=== PATIENT | male | born 1945 | race Asian ===

== ENCOUNTER 2016-12-13 15:03 | Emergency (ER) | END 2016-12-13 19:07 | disposition home or self-care (01) | DX: H70.92 Unspecified mastoiditis, left ear (principal); R42 Dizziness and giddiness; I10 Essential (primary) hypertension; E11.9 Type 2 diabetes mellitus without complications; R55 Syncope and collapse; Z85.46 Personal history of malignant neoplasm of prostate; Z95.1 Presence of aortocoronary bypass graft; Z79.84 Long term (current) use of oral hypoglycemic drugs | CPT/HCPCS: 36415; 70450; 71010; 80053; 82962; 83690; 84484; 85025; 85610; 85730; 93005; 96374; 99285; J2405 ==

== ENCOUNTER 2017-04-20 00:14 | Inpatient (IN) | payer OTHER ==
[2017-04-20] VITALS (10 sets, daily range): BP systolic 118–198; BP diastolic 59–108; PULSE 66–72; RESP 18–20; Ht 162.6 cm; Wt 71.5 kg
[~2017-04-20] VITALS: Ht 162.6 cm; Wt 71.5 kg
[~2017-04-20 00:14] MED LIST: ALLO100T PO; AMLO-147 PO; AMOX1TAB10 PO; ATOR20TA38 PO; LANS30CA PO; MECL12.574 PO; METF500T4 PO; METO-407 PO; OMEG-135 PO; ONDA4TAB14 PO; QUIN40TA22 PO; [UNRECOGNIZED DRUG - CODE] PO
[2017-04-20] MEDS ORDERED: SOD CHLORIDE 0.9% 500 ML IV STA (00:35)
--- NOTE | 2017-04-20 01:19 | RADRPT ---
PROCEDURE: XR Chest. CLINICAL INDICATION: Headache. TECHNIQUE: Single frontal view of the chest. COMPARISON: 12/13/2016. FINDINGS: Cardiomegaly with atherosclerotic calcifications in the tortuous thoracic aorta. The lungs are sherron r. No signs of pleural fluid or pneumothorax are seen. The osseous structures and soft tissues are u nremarkable. IMPRESSION: No evidence for active cardiopulmonary disease. RPTAT: [facility] Physician Kendra Date Time Electronically viewed and signed by Hedy Alcantar Physician on 04/20/2017 01:18 RS/
[2017-04-20 01:30] LABS: BASOPHIL # 0.1 10^3/ul (0.0-0.1); BASOPHILS % 0.8 % (0.0-2.0); EOSINOPHILS # 0.2 10^3/ul (0.0-0.5); EOSINOPHILS % 2.9 % (0.0-7.0); HEMATOCRIT 38.1 % (42.0-52.0); HEMOGLOBIN 13.4 g/dl (14.0-18.0); LYMPHOCYTES # 2.4 10^3/ul (0.8-2.9); LYMPHOCYTES % 37.3 % (15.0-51.0); MEAN CORPUSCULAR HEMOGLOBIN 30.4 pg (29.0-33.0); MEAN CORPUSCULAR HGB CONC 35.2 g/dl (32.0-37.0); MEAN CORPUSCULAR VOLUME 86.4 fl (82.0-101.0); MEAN PLATELET VOLUME 11.9 fl (7.4-10.4); MONOCYTE # 0.5 10^3/ul (0.3-0.9); MONOCYTES % 7.2 % (0.0-11.0); NEUTROPHIL # 3.3 10^3/ul (1.6-7.5); NEUTROPHILS % 50.7 % (39.0-77.0); PLATELET COUNT 140 10^3/UL (140-415); RED BLOOD COUNT 4.41 10^6/ul (4.70-6.10); RED CELL DISTRIBUTION WIDTH 12.9 % (11.5-14.5); WHITE BLOOD COUNT 6.5 10^3/ul (4.8-10.8)
--- NOTE | 2017-04-20 01:34 | RADRPT ---
PROCEDURE: CT BRAIN WITHOUT CONTRAST CLINICAL INDICATION: 71-year-old male with headaches. TECHNIQUE: The study was performed utilizing [employer] VCT 64-slice CT scanner. Direct axial sections were obtained from the foramen magnum to the vertex without the use of intravenous contrast material. Sagittal and coronal reformations were obtained. One or more the following dose reduction techniques were utilized: automated exposure control, adjustment of the mA and/or kV according to p atient's size or use of iterative reconstruction technique. The images were viewed on a PACS worksta tion. CTD/vol = 45.0 mGy; Total Exam DLP = 810.3 mGy-cm. COMPARISON: CT brain December 13, 2016. FINDINGS: There is fsza-fu-ftomhpms degree of diffuse cortical and central atrophy with compensatory ventricul ar enlargement. There is no evidence for mass effect or midline shift. There are periventricular a reas of decreased density consistent with microangiopathic ischemic changes. There is no evidence f or acute intra or extra-axial blood. Calcifications are seen within the intracranial carotid and therese tebral arteries bilaterally. The bony calvarium is intact. The partially visualized paranasal sinuse s and right mastoid air cells are without significant abnormal soft tissue. There is sclerotic appea sushil to the left mastoid air cells with soft tissue filling the residual aerated mastoid air cells extending into the middle ear (epitympanum and mesotympanum) without interval change. This is most s uggestive of granulation tissue from prior mastoid disease. IMPRESSION: 1. There has been no marked interval change compared to the patient's prior CT scan from December 21, 2016. 2. Ciry-pg-mkokaazk diffuse atrophy. 3. Microangiopathic ischemic changes. 4. Vascular calcifications. 5. Persistent soft tissue within the left mastoid air cells and middle ear most suggestive of granu lation tissue from prior otomastoid disease. .Darian Shah MD, Date Time Electronically viewed and signed by .Darian Shah MD, MD on 04/20/2017 01:33 .Aurelio
[2017-04-20 01:45] LABS: INR 0.84; PROTIME 11.5 Sec (12.2-14.2); PT RATIO 0.9
[2017-04-20 01:46] LABS: PARTIAL THROMBOPLASTIN TIME 31.5 Sec (25.0-35.0)
[2017-04-20 01:47] LABS: ANION GAP 21 (8-16); BLOOD UREA NITROGEN 11 mg/dl (7-20); CALCIUM 9.7 mg/dl (8.4-10.2); CARBON DIOXIDE 29 mmol/L (21-31); CHLORIDE 99 mmol/L (97-110); CREATININE 0.83 mg/dl (0.61-1.24); GLUCOSE 135 mg/dl (70-220); POTASSIUM 3.3 mmol/L (3.5-5.1); SODIUM 146 mmol/L (135-144)
[2017-04-20 02:02] LABS: TROPONIN-I < 0.012 ng/ml (0.00-0.12)
[2017-04-20] MEDS ORDERED: VALS320T11 PO (02:59)
--- NOTE | 2017-04-20 04:01 | ERA ---
ER Documentation Chief Complaint Date/Time DATE: 04/20/17 TIME: 04:00 Chief Complaint weakness today HPI This is 71-year-old male complains of weakness today. Is also complains of chest pain. Denies any fevers or chills. Denies any other current issues. Chest pain is mild to moderate intensity. Noted to have elevated blood pressure at home. ROS All systems reviewed and are negative except as per history of present illness. Medications Home Meds Active Scripts Ondansetron (Ondansetron Odt) 4 Mg Tab.rapdis, 4 MG PO Q6H Y for NAUSEA AND/OR VOMITING, #10 TAB Prov:ABI MARIN MD 12/13/16 Meclizine Hcl* (Antivert*) 12.5 Mg Tab, 25 MG PO Q6H Y for DIZZINESS, #20 TAB Prov:ABI MARIN MD 12/13/16 Amoxicillin/Potassium Clav (Amox-Clav 875-125 mg Tablet) 875-125 mg Tab, 1 TAB PO BID for 10 Days, #20 TAB Prov:ABI MARIN MD 12/13/16 Reported Medications Valsartan* (Diovan*) 320 Mg Tablet, 320 MG PO DAILY, TAB 04/20/17 Vitamin E* (Vitamin E*) Unknown Strength Capsule, 1 CAP PO DAILY, CAP 12/13/16 Lansoprazole* (Lansoprazole*) 30 Mg Capsule.dr, 30 MG PO DAILY, CAP 12/13/16 Metoprolol Tartrate* (Lopressor*) 100 Mg Tablet, 100 MG PO DAILY, #30 TAB 12/13/16 Metformin* (Glucophage*) 500 Mg Tab, 500 MG PO WITH BREAKFAST, TAB 03/22/15 Quinapril Hcl (Quinapril Hcl) 40 Mg Tablet, 40 MG PO DAILY, TAB 03/22/15 Fish Oil* (Fish Oil*) 1,000 Mg Cap, 1000 MG PO BID, CAP 03/22/15 Atorvastatin Calcium* (Atorvastatin Calcium*) 20 Mg Tablet, 20 MG PO HS, TAB 03/22/15 Amlodipine Besylate* (Amlodipine Besylate*) 10 Mg Tablet, 10 MG PO DAILY, TAB 03/22/15 Allopurinol* (Allopurinol*) 100 Mg Tablet, 100 MG PO DAILY, TAB 03/22/15 Allergies Allergies: Coded Allergies: No Known Allergies (Unverified Allergy, Unknown, 7/26/17) PMhx/Soc History of Surgery: Yes (CABG,LAP AGATHA,HERNIA REPAIR) Anesthesia Reaction: No Hx Neurological Disorder: No Hx Respiratory Disorders: No Hx Psychiatric Problems: No Hx Miscellaneous Medical Probl: Yes (HTN,DM,HYPERCHOLESTEROLEMIA, PROSTATE CANCER) Hx Alcohol Use: No Hx Substance Use: No Hx Tobacco Use: No Smoking Status: Never smoker Physical Exam Vitals Vital Signs Date Time Temp Pulse Resp B/P Pulse Ox O2 Delivery O2 Flow Rate FiO2 04/20/17 03:00 68 18 148/90 97 Room Air 04/20/17 01:10 72 18 159/94 98 Room Air 04/20/17 00:18 97.3 72 20 161/85 98 Physical Exam Const: [] Head: Atraumatic Eyes: Normal Conjunctiva ENT: Normal External Ears, Nose and Mouth. Neck: Full range of motion..~ No meningismus. Resp: Clear to auscultation bilaterally Cardio: Regular rate and rhythm, no murmurs Abd: Soft, non tender, non distended. Normal bowel sounds Skin: No petechiae or rashes Back: No midline or flank tenderness Ext: No cyanosis, or edema Neur: Awake and alert Psych: Normal Mood and Affect Result Diagram: 04/20/1710404/20/17 010 Results 24 hrs Laboratory Tests Test 04/20/17 01:05 White Blood Count 6.510^3/ul Red Blood Count 4.4110^6/ul Hemoglobin 13.4g/dl Hematocrit 38.1% Mean Corpuscular Volume 86.4fl Mean Corpuscular Hemoglobin 30.4pg Mean Corpuscular Hemoglobin Concent 35.2g/dl Red Cell Distribution Width 12.9% Platelet Count 21700^3/UL Mean Platelet Volume 11.9fl Neutrophils % 50.7% Lymphocytes % 37.3% Monocytes % 7.2% Eosinophils % 2.9% Basophils % 0.8% Nucleated Red Blood Cells % 0.0/100WBC Neutrophils # 3.310^3/ul Lymphocytes # 2.410^3/ul Monocytes # 0.510^3/ul Eosinophils # 0.210^3/ul Basophils # 0.110^3/ul Nucleated Red Blood Cells # 0.010^3/ul Prothrombin Time 11.5Sec Prothrombin Time Ratio 0.9 INR International Normalized Ratio 0.84 Activated Partial Thromboplast Time 31.5Sec Sodium Level 146mmol/L Potassium Level 3.3mmol/L Chloride Level 99mmol/L Carbon Dioxide Level 29mmol/L Anion Gap 21 Blood Urea Nitrogen 11mg/dl Creatinine 0.83mg/dl Glucose Level 135mg/dl Calcium Level 9.7mg/dl Troponin I < 0.012ng/ml Current Medications Medications (Trade) Dose Ordered Sig/Jn Route PRN Reason Start Time Stop Time Status Last Admin Dose Admin Sodium Chloride (NS) 500 ml @ 500 mls/hr Q1H STAT IV 04/20/17 00:35 04/20/17 01:34 DC 04/20/17 01:08 Procedures/MDM EKG: Rate/Rhythm: Normal Sinus Rhythm QRS, ST, T-waves: No changes consistent w/ acute ischemia Impression: No evidence of ischemia or arrhythmia Chest X-ray 1V Interpreted by me: Soft Tissue: No acute abnormalities Bones: No acute abnormalities Mediastinum/Cardiac Silhouette/Lungs: No acute abnormalities Patient's symptoms are concerning for cardiac cause will require inpatient workup and continuous monitoring. Further w/u for ischemia, arrhythmia, PE or dissection will be deferred to the inpatient team. Accepting Care Team: Current data and ongoing care discussed. Time: 3 am Primary Provider: andrez Consulting: [XLORRAINEO] Outstanding Data: none Departure Diagnosis: Primary Impression: Chest pain Qualified Code: R07.9 - Chest pain, unspecified type Condition: Stable JAMES BUTTS Apr 20, 2017 04:01
[2017-04-20] MEDS ORDERED: ASPIRIN 325 MG TAB PO ONE (07:00)
[2017-04-20] MEDS ORDERED: NITROGLYCERIN 0.1 MG/HR PATCH TRANSDERM ONE (07:00)
[2017-04-20] MEDS ORDERED: NITROGLYCERIN 2% 1 GM OINT PKT TD ONE (07:18)
--- NOTE | 2017-04-20 11:12 | HP ---
Date/Time of Note Date/Time of Note DATE: 04/20/17 TIME: 10:50 Assessment/Plan VTE Prophylaxis VTE Prophylaxis Intervention: SCD's Assessment/Plan Assessment/Plan - Chest pain in patient with history of coronary artery disease, status post CABG 11 years ago. Will obtain cardiac enzymes 3 every 8 hours, twelve-lead EKG and 2D echo. Continue aspirin and nitroglycerin. Dr. León is asked to see patient in cardiology consultation. - Hypertension, continue metoprolol Diovan, quinapril and Norvasc. - Diabetes mellitus type 2 patient stated his last hemoglobin A1c was 6 , continue metformin. Will check hemoglobin A 1C. NovoLog per mild algorithm sliding scale q. before meals and at bedtime. - Hyperlipidemia, continue statin, check lipid panel. - History of prostate cancer, status post surgery. We will start Lovenox for deep venous thrombosis prophylaxis and Protonix for peptic ulcer disease prophylaxis. Further recommendations based on clinical course. Plan of care discussed with Dr. Buenrostro. HPI/ROS Admit Date/Time Admit Date/Time Hx of Present Illness The patient is very pleasant 71-year-old gentleman with past medical history positive for coronary artery disease, status post CABG 11 years ago, history of hypertension, diabetes, hyperlipidemia, history of prostate cancer, status post surgery. Patient developed chest pain last night and noted to have systolic blood pressure was above 200. Patient stated that the pain is pressure-like, moderate in intensity in the midsternum with no radiation. Patient's complains of mild headache. Patient denies any fever, chills, denies any nausea, vomiting , denies any abdominal pain. Patient stated that he is been compliant with his blood pressure medication. Patient troponin is found to be negative, twelve- lead EKG reveals sinus rhythm is normal with no ST segment elevation or depression. Patient was giving nitroglycerin aspirin and Coreg. The patient will be admitted for further evaluation and management to telemetry floor. PMH/Family/Social Past Medical History Coronary artery disease status post CABG 11 years ago, prostate, prostate cancer status post surgery, sigmoid diverticulosis per endoscopy 2 years ago. Medical History: cancer, diabetes, high cholesterol, hypertension Past Surgical History Status post CABG, status post cholecystectomy, status post surgery for prostate cancer and right inguinal hernia repair. Past Surgical Hx: cholecystectomy, coronary bypass surgery, endoscopy Family History Significant Family History: no pertinent family hx Social History Alcohol Use: occasionally Smoking Status: Never smoker Drug Use: none Exam/Review of Systems Vital Signs Vitals Vital Signs Date Time Temp Pulse Resp B/P Pulse Ox O2 Delivery O2 Flow Rate FiO2 04/20/17 09:48 84 19 122/81 99 Nasal Cannula 3.0 04/20/17 00:18 97.3 Exam Constitutional: alert Psych: no complaints Head: atraumatic, normocephalic Eyes: nl conjunctiva Neck: supple Respiratory: clear to auscultation Cardiovascular: nl pulses Gastrointestinal: non-tender, soft Musculoskeletal: nl extremities to inspection Extremities: normal pulses Neurological: nl mental status Skin: nl turgor Labs Result Diagram: 04/20/17 0105 04/20/17 0105 GLEN MCKENZIE Apr 20, 2017 11:01
[2017-04-20] MEDS ORDERED: POTASSIUM CHLORIDE 20 MEQ POWDER FOR ORAL SOLN PO ONE (11:30)
[2017-04-20] MEDS ORDERED: ONDANSETRON 4 MG INJ IV PRN (11:30)
[2017-04-20] MEDS ORDERED: morphine 2 MG INJ IV PRN (11:30)
[2017-04-20] MEDS ORDERED: AMLODIPINE 10 MG TAB PO SCH (11:30)
[2017-04-20] MEDS ORDERED: NITROGLYCERIN (SL) 0.4 MG TAB SL PRN (11:30)
[2017-04-20] MEDS ORDERED: NACL 0.9% 3 ML SYG IV SCH (11:30)
[2017-04-20] MEDS ORDERED: LANSOPRAZOLE 30 MG CAP PO SCH (11:30)
[2017-04-20] MEDS ORDERED: VALSARTAN 160 MG TAB PO SCH (12:00)
[2017-04-20] MEDS ORDERED: POTASSIUM CHLORIDE (SR) 10 MEQ TAB PO ONE (12:30)
--- NOTE | 2017-04-20 15:35 | RADRPT ---
Echocardiogram Report Patient Name: ALANNA FERNANDEZ Gender: Male Date: 1945 Study Date: 20-Apr-2017 Journalism Professor: Darin [facility] Location: [facility], [place] Ref. Physician: ROSA BECKMAN Quality: Adequate Procedures: Transthoracic echocardiogram with complete 2D, M-Mode, and doppler examination. Indications: Chest Pain. 2D/M Mode Doppler Measurement Value Normal Ranges Measurement Value Normal Ranges LVIDd 2D 4.5 3.5 - 5.6 cm AV Peak Negro 1.6 m/sec LVIDs 2D 3.2 2.1 - 4.1 cm AV Peak PG 10.0 mmHg FS 2D 30.4 % LVOT Peak Negro 1.0 m/sec LVPWd 2D 1.3 0.6 - 1.1 cm LVOT Peak PG 4.0 mmHg IVSd 2D 1.3 0.6 - 1.1 cm MV E Peak Negro 0.6 m/sec IVS/LVPW 2D 1.0 MV A Peak Negro 0.9 m/sec AoR Diam 2D 3.8 2.0 - 3.7 cm MV E/A 0.7 LA/Ao 2D 1 0 - 1 MV Decel Time 180 msec EDV 2D 93.6 cm3 MV E/A 0.7 ESV 2D 31.6 cm3 TR Peak Negro 2.5 m/sec LA Dimen 2D 3.3 2.3 - 4.0 cm TR Peak PG 26.0 mmHg RVSP 29.0 mmHg Findings Left Ventricle: Normal left ventricular systolic function. Normal left ventricular cavity size. Mild concentric left ventricular hypertrophy. Ejection fraction is visually estimated at 60 %. Abnormal Diastolic Function. Right Ventricle: Normal right ventricular size. Normal right ventricular systolic function. Left Atrium: The left atrium is normal in size. Right Atrium: The right atrium is normal in size. Mitral Valve: Mitral valve leaflets appear mildly thickened. Mild mitral annular calcification. Trace mitral regurgitation. Aortic Valve: No significant aortic stenosis or insufficiency. Aortic cusps appear mildly calcified. Tricuspid Valve: Normal appearance of the tricuspid valve. Estimated peak PA systolic pressure 29 mmHg. There is mild tricuspid regurgitation. Pulmonic Valve: Pulmonic valve not well visualized. There is trace pulmonic regurgitation. Pericardium: Normal pericardium with no significant pericardial effusion. Aorta: Ascending aorta is moderately dilated. Ascending Aorta 4.91 cm. IVC: Normal size and normal respiratory collapse consistent with normal right atrial pressure. Conclusions 1.Normal left ventricular systolic function. Normal left ventricular cavity size. Mild concentric left ventricular hypertrophy. Ejection fraction is visually estimated at 60 %. Abnormal Diastolic Function. 2.Normal right ventricular size. Normal right ventricular systolic function. 3.The left atrium is normal in size. 4.The right atrium is normal in size. 5.Estimated peak PA systolic pressure 29 mmHg. There is mild tricuspid regurgitation. 6.No significant valvular stenosis or regurgitation seen of remaining visualized valves. 7.Ascending aorta is moderately dilated. Ascending Aorta 4.91 cm. 8.Normal pericardium with no significant pericardial effusion. Electronically Signed By: Jhonatan León 20-Apr-2017 15:34:05 -0700 Patient Name: ALANNA FERNANDEZ Study Date: 20-Apr-2017 [id number]
--- NOTE | 2017-04-20 17:32 | CONS ---
Date/Time of Note Date/Time of Note DATE: 04/20/17 TIME: 17:25 Assessment/Plan Assessment/Plan Additional Assessment/Plan Hypertension urgency Chest pain and shortness of breath, resolved Coronary artery disease with history of CABG Dyslipidemia Aortic root aneurysm -Patient with difficult to control blood pressure over the past month. On review of medications, he is on Norvasc, Diovan, quinapril and Lopressor. His Norvasc has been giving him increased lower extremity edema. I would ideally not want the patient on an DEBBIE inhibitor and ARB. Would DC DEBBIE inhibitor, change Diovan to twice daily dosing, change Lopressor to Coreg. Decreased dose of Norvasc to 5 mg. I will await to see patient's response to this medication regimen. If needed, could start patient on low-dose diuretic in addition. His chest pain occurs when he is hypertensive and denies exertional chest pain or shortness of breath. Unfortunately, there is no ECG in the chart for me to review and I have ordered one. 2 sets of cardiac enzymes have remained negative and echocardiogram with preserved ejection fraction. On review of echocardiogram, aortic root is dilated. I will request a CT of the chest for more precise measurements. Continue aspirin and statin therapy. Consultation Date/Type/Reason Admit Date/Time Type of Consultation: cv Reason for Consultation Hypertension and chest pain Hx of Present Illness This is a 71-year-old male with past medical history of coronary artery disease with history of CABG approximately 11 years ago, hypertension, dyslipidemia, borderline diabetes who presents with complaints of chest pain, shortness of breath and hypertension. In discussion with the daughter, who is an excellent nurse at our facility, patient with issues with blood pressure control over the past month. Patient has been compliant with medications. Yesterday, he should with systolic blood pressure above 200. At this time, patient with chest pain or shortness of breath. Because of worsening symptoms, he came to the emergency room for evaluation and care. Once blood pressure was controlled, chest pain and shortness of breath resolved. Denies exertional chest pain or shortness of breath prior to this incident. He does walk daily approximately 30 -40 minutes with no exertional chest pain or shortness of breath, dizziness or palpitations. 12 point review of systems was performed with all pertinent positives and negatives mentioned above and all else is negative Psychological: no complaints Past Medical History Medical History: cancer, coronary artery disease, diabetes, high cholesterol, hypertension Past Surgical History Past Surgical Hx: cholecystectomy, coronary bypass surgery, endoscopy Family History Significant Family History: no pertinent family hx Social History Alcohol Use: occasionally Smoking Status: Never smoker Drug Use: none Other Social History Lives at home Exam/Review of Systems Vital Signs Vitals Vital Signs Date Time Temp Pulse Resp B/P Pulse Ox O2 Delivery O2 Flow Rate FiO2 04/20/17 16:24 66 04/20/17 15:42 98.3 20 126/59 94 04/20/17 11:32 Room Air 04/20/17 09:48 3.0 Exam No apparent distress, no dyspnea with speaking, daughter at bedside Constitutional: alert, oriented Head: normocephalic Neck: supple Respiratory: clear to auscultation, normal air movement Cardiovascular: other (S1-S2 heard), regular rate and rhythm, systolic murmur Gastrointestinal: bowel sounds, non-tender, other (No guarding), soft Extremities: edema Results Result Diagram: 04/20/17 0105 04/20/17 0105 Results 24 hrs Laboratory Tests Test 04/20/17 01:05 04/20/17 08:48 White Blood Count 6.5 # Red Blood Count 4.41 L Hemoglobin 13.4 L Hematocrit 38.1 L Mean Corpuscular Volume 86.4 Mean Corpuscular Hemoglobin 30.4 Mean Corpuscular Hemoglobin Concent 35.2 Red Cell Distribution Width 12.9 Platelet Count 140 # Mean Platelet Volume 11.9 H Neutrophils % 50.7 Lymphocytes % 37.3 Monocytes % 7.2 Eosinophils % 2.9 Basophils % 0.8 Nucleated Red Blood Cells % 0.0 Neutrophils # 3.3 Lymphocytes # 2.4 Monocytes # 0.5 Eosinophils # 0.2 Basophils # 0.1 Nucleated Red Blood Cells # 0.0 Prothrombin Time 11.5 L Prothrombin Time Ratio 0.9 INR International Normalized Ratio 0.84 Activated Partial Thromboplast Time 31.5 Sodium Level 146 H Potassium Level 3.3 L Chloride Level 99 Carbon Dioxide Level 29 Anion Gap 21 H Blood Urea Nitrogen 11 Creatinine 0.83 Glucose Level 135 Calcium Level 9.7 Troponin I < 0.012 < 0.012 Medications Medications Current Medications Allopurinol (Zyloprim) 100 mg DAILY PO ; Start 04/21/17 at 09:00 Amlodipine Besylate (Norvasc) 10 mg DAILY PO ; Start 04/20/17 at 11:30 Atorvastatin Calcium (Lipitor) 20 mg HS PO ; Start 04/20/17 at 21:00 Lansoprazole (Prevacid) 30 mg DAILY PO ; Start 04/20/17 at 11:30; Status Future Hold Metoprolol Tartrate (Lopressor) 100 mg DAILY PO ; Start 04/21/17 at 09:00 Valsartan (Diovan) 320 mg DAILY PO Last administered on 04/20/17t 12:45; Admin Dose 320 MG; Start 04/20/17 at 12:00 Benazepril HCl (Lotensin) 40 mg DAILY PO ; Start 04/21/17 at 09:00 Ondansetron HCl (Zofran Inj) 4 mg Q6H PRN IV NAUSEA AND/OR VOMITING; Start at 11:30 Aspirin (Ecotrin) 325 mg DAILY PO ; Start 04/21/17 at 09:00 Nitroglycerin (Nitroglycerin (Sl Tab) 0.4 Mg) 1 tab Q5M PRN SL CHEST PAIN; Start 04/20/17 at 11:30 Acetaminophen (Tylenol Tab) 650 mg Q6H PRN PO PAIN LEVEL 1-3 OR FEVER; Start at 11:30 Morphine Sulfate (morphine) 2 mg Q4H PRN IV PAIN LEVEL 7-10; Start 04/20/17 at 11:30 Pantoprazole (Protonix Tab) 40 mg DAILY@06 PO ; Start 04/21/17 at 06:00 Enoxaparin Sodium (Lovenox) 30 mg DAILY SC ; Start 04/21/17 at 09:00 Jhonatan León DO Apr 20, 2017 17:32
--- NOTE | 2017-04-20 18:01 | RADRPT ---
PROCEDURE: CT Chest. CLINICAL INDICATION: Chest pain TECHNIQUE: CT scan of the chest without contrast was performed on the [employer] volumetric [address] [facility] without contrast. Coronal and sagittal reformatted images were obtained from the axial source images. The CTDI vol is 7.99 mGy and the DLP is 350.76 mGy-cm. COMPARISON: None. FINDINGS: A 4 mm irregular opacity in the right apex is seen on series 4 and image number 25. A tiny 2 mm mauri cified granuloma in the left lower lobe is seen on series 4 and image 93. Mild atelectasis versus s carring in the right middle lobe is seen. No dense consolidation or pleural effusion is seen. The mediastinum and hilum are unremarkable without evidence for mass or lymphadenopathy. Fusiform aneur ysmal dilatation of the aortic root and ascending aorta is seen. The ascending aorta measures appro ximately 5.4 x 5.3 cm in size and extends into the proximal aortic arch. The remainder the aortic a rch is otherwise slightly ectatic and tortuous in course with atherosclerotic calcific plaque. Coron beba vascular calcifications are seen. The heart size is mildly enlarged and is without evidence for pericardial thickening or effusion. The axillary regions, subpectoral regions, and supraclavicular regions are all unremarkable. The gallbladder has been removed. The right renal cyst is seen measuring 1.9 cm in size. Imaging obtained through the upper abdomen reveals no acute abnormality. The osseous structures are intact. No osteolytic or osteoblastic lesion is detected. IMPRESSION: 1. Fusiform aneurysmal dilatation of the ascending aorta extending to the proximal aortic arch sarahi uring 5.4 cm in maximal diameter. 2. Mild cardiomegaly. 3. Status post cholecystectomy. 4. 4 mm irregular opacity in the right apex. Recommendations Solid nodules Nodule size: = 4 mm - low risk patients: no follow-up needed - high risk patients: follow-up at 12 months and if no change, no further imaging needed Nodule size: 4-6 mm - low risk patients: follow-up at 12 months and if no change, no further imaging needed - high risk patients: initial follow-up CT at 6-12 months and then at 18-24 months if no change Nodule size: >6-8 mm - low risk patients: initial follow-up CT at 6-12 months and then at 18-24 months if no change - high risk patients: initial follow-up CT at 3-6 months and then at 9-12 and 24 months if no change Nodule size: >8 mm - either low or high risk patients - follow-up CTs at around 3, 9, and 24 months - dynamic contrast enhanced CT, PET, and/or biopsy Note: newly detected indeterminate nodule in persons 35 years of age or older. - low risk patients: minimal or absent history of smoking and or other known risk factors - high risk patients: history of smoking or of other known risk factors (e.g. first degree relative with lung cancer, or exposure to asbestos, radon, uranium) if a nodule up to 8 mm is partly solid or is ground glass further follow up is required after 24 mon ths to exclude possible slow growing adenocarcinoma (NICOLETTE) RPTAT: HPNM Physician Otilia Date Time Electronically viewed and signed by Carlos Alberto Cee Physician on 04/20/2017 18:00 /
[2017-04-20] MEDS: ATORVASTATIN 20 MG TAB PO SCH (20:20)
[2017-04-21] VITALS (20 sets, daily range): BP systolic 140–172; BP diastolic 76–100; PULSE 61–96; RESP 16–20
[2017-04-21] MEDS: PANTOPRAZOLE (EC) 40 MG TAB PO SCH (05:43)
--- NOTE | 2017-04-21 06:34 | CONS ---
Date/Time of Note Date/Time of Note DATE: 04/21/17 TIME: 06:29 Assessment/Plan Assessment/Plan Additional Assessment/Plan 71 year old male with 5.4cm ascending aortic aneurysm. He should have this repaired since anything over 5.2 cm has increased risk of dissection or rupture especially in the face of significant htn poorly controlled. Should have coronary angiogram prior to surgery. Patient will follow up with me as outpatient. Thank you for the referral. Consultation Date/Type/Reason Admit Date/Time Date of Consultation: Apr 21, 2017 Reason for Consultation ascending aneurysm Referring Provider: Jhonatan León DO Hx of Present Illness 71 year old male s/p CABGx2 11 years ago admitted with CP and HTN. Had ct chest which shows 5.4 cm ascending aortic aneurysm. We are asked to see pt regarding repair. Constitutional: No chills, No diaphoresis, No disoriented, No febrile, No improved, No no complaints, No other, No poor po, No requiring IVF, No requiring O2 Eyes: No discharge, No no complaints, No other, No pain, No redness, No visual change ENT: No bleeding, No congestion, No discharge, No dysphagia, No no complaints, No other, No pain, No sore throat Respiratory: No cough, No no complaints, No other, No pain, No pleuritic pain, No shortness of breath, No sputum, No wheezing Cardiovascular: chest pain Gastrointestinal: No blood, No constipation, No decreased appetite, No diarrhea , No flatus, No nausea, No no complaints, No other, No pain, No passing stool, No vomiting Genitourinary: No bleeding, No discharge, No dysuria, No flank pain, No hematuria, No no complaints, No other Musculoskeletal: No back pain, No bone/joint pain, No neck pain, No no complaints, No other, No restricted range of motion, No swelling Skin: No bruising, No erythema, No laceration, No no complaints, No other, No pruritis, No rash, No skin lesions Neurologic: No confusion, No dizziness, No focal-weakness, No headache, No no complaints, No other, No seizure, No syncope Endocrine: No dry skin, No no complaints, No other, No polydypsia, No polyuria , No temp intolerance Lymphatic: No adenopathy, No lymphadema, No no complaints, No other, No tender nodes Psychological: no complaints, No anxiety, No confusion, No depression, No nl mood/affect, No other, No suicidal Immunologic: No immunodeficiency, No no complaints, No other, No pruritis, No rhinitis, No urticaria Past Medical History Medical History: cancer, coronary artery disease, diabetes, high cholesterol, hypertension Past Surgical History Past Surgical Hx: cholecystectomy, coronary bypass surgery, endoscopy Family History Significant Family History: no pertinent family hx Social History Alcohol Use: none Smoking Status: Never smoker Drug Use: none Exam/Review of Systems Vital Signs Vitals Vital Signs Date Time Temp Pulse Resp B/P Pulse Ox O2 Delivery O2 Flow Rate FiO2 04/21/17 05:44 67 159/89 04/21/17 03:47 97.8 18 98 04/20/17 11:32 Room Air 04/20/17 09:48 3.0 Intake and Output 04/20/17 04/20/17 04/21/17 15:00 23:00 07:00 Intake Total 400 ml 200 ml Balance 400 ml 200 ml Exam Constitutional: No alert, No distress, No frail, No non-verbal, No obese, No oriented, No other, No well developed Psych: No anxiety, No confusion, No depression, No nl mood/affect, No no complaints, No other, No suicidal Head: No atraumatic, No hematomas, No lacerations, No normocephalic, No other Eyes: No EOMI, No PERRL, No fundi, disc, No icteric, No nl conjunctiva, No nl lids, No nl sclera, No other ENMT: No intubated, No mucosa pink and moist, No nl external ears & nose, No nl lips & teeth, No nl nasal mucosa & septum, No other, No tympanic membranes Neck: No bruits, No jvd, No masses, No non-tender, No nuchal rigidity, No other , No supple, No thyromegaly Respiratory: No clear to auscultation, No congested cough, No crackles/rales, No diminished breath sounds, No intercostal retraction, No labored breathing, No normal air movement, No other, No respirations, No tactile fremitus, No wheezing Cardiovascular: No S3, No S4, No bruits, No diastolic murmur, No edema, No gallop, No irregular rhythm, No jugular venous distention (JVD), No murmurs/ extra sounds, No nl pulses, No other, No regular rate and rhythm, No rub, No systolic murmur Gastrointestinal: No ascites, No bowel sounds, No distended, No firm, No hepatomegaly, No mass, No nl liver, spleen, No non-tender, No other, No rebound or guarding, No soft, No splenomegaly, No surgical scars, No tender Genitourinary - Male: No CVA tenderness, No discharge, No nl penis, No nl scrotum, No other Musculoskeletal: No joint tenderness, No muscle tone, No muscle weakness, No nl extremities to inspection, No nl gait and stance, No other, No range of motion, No spine non-tender, No swelling Extremities: No calf tenderness, No clubbing, No cyanosis, No edema, No normal pulses, No other, No palpable cord, No pitting pedal edema, No tenderness Neurological: No SUPERINTENDENT LAUNDRY II-XII intact, No DTR's symmetric, No confused, No focal weakness, No lethargic, No nl mental status, No nl speech, No nl strength, No numbness, No other, No reflexes, No unresponsive Skin: No diaphoresis, No ecchymosis, No laceration, No nl turgor, No other, No puncture, No rash or lesions Lymph: No enlarged, No nl lymph nodes, No nontender, No other Results Result Diagram: 04/20/1710404/20/17104 Results 24 hrs Laboratory Tests Test 04/20/17 08:48 Troponin I < 0.012 Medications Medications Current Medications Allopurinol (Zyloprim) 100 mg DAILY PO ; Start 04/21/17 at 09:00 Atorvastatin Calcium (Lipitor) 20 mg HS PO Last administered on 04/20/17t 20:20 ; Admin Dose 20 MG; Start 04/20/17 at 21:00 Lansoprazole (Prevacid) 30 mg DAILY PO ; Start 04/20/17 at 11:30; Status Future Hold Ondansetron HCl (Zofran Inj) 4 mg Q6H PRN IV NAUSEA AND/OR VOMITING; Start at 11:30 Nitroglycerin (Nitroglycerin (Sl Tab) 0.4 Mg) 1 tab Q5M PRN SL CHEST PAIN; Start 04/20/17 at 11:30 Acetaminophen (Tylenol Tab) 650 mg Q6H PRN PO PAIN LEVEL 1-3 OR FEVER; Start at 11:30 Morphine Sulfate (morphine) 2 mg Q4H PRN IV PAIN LEVEL 7-10; Start 04/20/17 at 11:30 Pantoprazole (Protonix Tab) 40 mg DAILY@06 PO Last administered on 04/21/17 05 :43; Admin Dose 40 MG; Start 04/21/17 at 06:00 Enoxaparin Sodium (Lovenox) 30 mg DAILY SC ; Start 04/21/17 at 09:00 Amlodipine Besylate (Norvasc) 5 mg DAILY PO ; Start 04/21/17 at 09:00 Aspirin (Halfprin) 81 mg DAILY PO ; Start 04/21/17 at 09:00 Valsartan (Diovan) 160 mg BID PO ; Start 04/21/17 at 09:00 Carvedilol (Coreg) 6.25 mg BID PO Last administered on 04/20/17 19:39; Admin Dose 6.25 MG; Start 04/20/17 at 20:00 Hydralazine HCl (Apresoline) 10 mg Q4H PRN IV sbp <180; Start 04/20/17 at 19:30 MARY HALE MD Apr 21, 2017 06:34
[2017-04-21 07:59] LABS: BASOPHIL # 0.1 10^3/ul (0.0-0.1); BASOPHILS % 0.9 % (0.0-2.0); EOSINOPHILS # 0.2 10^3/ul (0.0-0.5); EOSINOPHILS % 3.4 % (0.0-7.0); HEMATOCRIT 38.5 % (42.0-52.0); HEMOGLOBIN 13.2 g/dl (14.0-18.0); LYMPHOCYTES # 2.6 10^3/ul (0.8-2.9); LYMPHOCYTES % 40.3 % (15.0-51.0); MEAN CORPUSCULAR HEMOGLOBIN 30.2 pg (29.0-33.0); MEAN CORPUSCULAR HGB CONC 34.3 g/dl (32.0-37.0); MEAN CORPUSCULAR VOLUME 88.1 fl (82.0-101.0); MEAN PLATELET VOLUME 12.3 fl (7.4-10.4); MONOCYTE # 0.5 10^3/ul (0.3-0.9); MONOCYTES % 8.2 % (0.0-11.0); NEUTROPHIL # 3.1 10^3/ul (1.6-7.5); NEUTROPHILS % 46.9 % (39.0-77.0); PLATELET COUNT 140 10^3/UL (140-415); RED BLOOD COUNT 4.37 10^6/ul (4.70-6.10); WHITE BLOOD COUNT 6.5 10^3/ul (4.8-10.8)
[2017-04-21] MEDS: ALLOPURINOL 100 MG TAB PO SCH (08:37)
[2017-04-21] MEDS: metFORMIN 500 MG TAB PO SCH (08:38)
[2017-04-21] MEDS: VALSARTAN 160 MG TAB PO SCH ×2 (08:38→20:22)
[2017-04-21] MEDS: ASPIRIN (EC) 81 MG TAB PO SCH (08:38)
[2017-04-21] MEDS: AMLODIPINE 5 MG TAB PO SCH ×2 (08:41→11:55)
[2017-04-21 08:48] LABS: CHOL/HDL RATIO 5.6 RATIO
[2017-04-21 08:51] LABS: BILIRUBIN,INDIRECT 1.7 mg/dl (0-1.1); CREATININE 0.93 mg/dl (0.61-1.24); POTASSIUM 3.7 mmol/L (3.5-5.1)
[2017-04-21 08:52] LABS: ALBUMIN 4.2 g/dl (3.3-4.9); ALBUMIN/GLOBULIN RATIO 1.27; BILIRUBIN,TOTAL 1.7 mg/dl (0.2-1.3); TOTAL PROTEIN 7.5 g/dl (6.1-8.1)
[2017-04-21] MEDS ORDERED: METOPROLOL 100 MG TAB PO SCH (09:00)
[2017-04-21] MEDS ORDERED: BENAZEPRIL 40 MG TAB PO SCH (09:00)
[2017-04-21] MEDS ORDERED: ASPIRIN (EC) 325 MG TAB PO SCH (09:00)
[2017-04-21] MEDS ORDERED: DEXTROSE 50% 50 ML SYRINGE IV PRN ×2 (10:00)
[2017-04-21] MEDS ORDERED: GLUCOSE GEL 15 GRAM TUBE PO PRN ×2 (10:00)
[2017-04-21] MEDS ORDERED: GLUCAGON 1 MG INJ IM PRN (10:00)
[2017-04-21] MEDS ORDERED: GLUCOSE GEL 15 GRAM TUBE BUCCAL PRN (10:00)
[2017-04-21] MEDS: ENOXAPARIN 30 MG/0.3 ML SYG SC SCH (11:54)
--- NOTE | 2017-04-21 12:11 | PN ---
Date/Time of Note Date/Time of Note DATE: 04/21/17 TIME: 12:10 Assessment/Plan VTE Prophylaxis VTE Prophylaxis Intervention: other Lines/Catheters [facility] Urinary Cath still in place: No Assessment/Plan Chief Complaint/Hosp Course - Chest pain in patient with history of coronary artery disease, status post CABG 11 years ago. Will obtain cardiac enzymes 3 every 8 hours, twelve-lead EKG and 2D echo. Continue aspirin and nitroglycerin. Dr. León is asked to see patient in cardiology consultation. - Hypertension, continue metoprolol Diovan, quinapril and Norvasc. - Diabetes mellitus type 2 patient stated his last hemoglobin A1c was 6 , continue metformin. Will check hemoglobin A 1C. NovoLog per mild algorithm sliding scale q. before meals and at bedtime. - Hyperlipidemia, continue statin, check lipid panel. - History of prostate cancer, status post surgery. Problems: Subjective 24 Hr Interval Summary Free Text/Dictation Patient denies any chest pain Exam/Review of Systems Vital Signs Vitals Vital Signs Date Time Temp Pulse Resp B/P Pulse Ox O2 Delivery O2 Flow Rate FiO2 04/21/17 11:41 98.2 72 16 167/91 96 04/20/17 11:32 Room Air 04/20/17 09:48 3.0 Intake and Output 04/20/17 04/20/17 04/21/17 15:00 23:00 07:00 Intake Total 400 ml 200 ml Balance 400 ml 200 ml Exam Constitutional: well developed Head: atraumatic, normocephalic Neck: supple Respiratory: clear to auscultation Cardiovascular: regular rate and rhythm Gastrointestinal: non-tender, soft Extremities: normal pulses Results Result Diagram: 04/21/17 0654 04/21/17 0654 Results 24 hrs Laboratory Tests Test 04/21/17 06:54 White Blood Count 6.5 Red Blood Count 4.37 L Hemoglobin 13.2 L Hematocrit 38.5 L Mean Corpuscular Volume 88.1 Mean Corpuscular Hemoglobin 30.2 Mean Corpuscular Hemoglobin Concent 34.3 Red Cell Distribution Width 13.0 Platelet Count 140 Mean Platelet Volume 12.3 H Neutrophils % 46.9 Lymphocytes % 40.3 Monocytes % 8.2 Eosinophils % 3.4 Basophils % 0.9 Nucleated Red Blood Cells % 0.0 Neutrophils # 3.1 Lymphocytes # 2.6 Monocytes # 0.5 Eosinophils # 0.2 Basophils # 0.1 Nucleated Red Blood Cells # 0.0 Sodium Level 146 H Potassium Level 3.7 Chloride Level 102 Carbon Dioxide Level 30 Anion Gap 18 H Blood Urea Nitrogen 12 Creatinine 0.93 Glucose Level 117 Hemoglobin A1c 5.9 Calcium Level 9.0 Magnesium Level 2.0 Total Bilirubin 1.7 H Direct Bilirubin 0.00 Indirect Bilirubin 1.7 H Aspartate Amino Transf (AST/SGOT) 28 Alanine Aminotransferase (ALT/SGPT) 41 Alkaline Phosphatase 95 Total Protein 7.5 Albumin 4.2 Globulin 3.30 H Albumin/Globulin Ratio 1.27 Triglycerides Level 380 H Cholesterol Level 153 LDL Cholesterol, Calculated 50 HDL Cholesterol 27 L Cholesterol/HDL Ratio 5.6 Thyroid Stimulating Hormone (TSH) 0.556 Medications Medications Current Medications Allopurinol (Zyloprim) 100 mg DAILY PO Last administered on 04/21/17 08:37; Admin Dose 100 MG; Start 04/21/17 at 09:00 Atorvastatin Calcium (Lipitor) 20 mg HS PO Last administered on 04/20/17 20:20 ; Admin Dose 20 MG; Start 04/20/17 at 21:00 Lansoprazole (Prevacid) 30 mg DAILY PO ; Start 04/20/17 at 11:30; Status Future Hold Ondansetron HCl (Zofran Inj) 4 mg Q6H PRN IV NAUSEA AND/OR VOMITING; Start at 11:30 Nitroglycerin (Nitroglycerin (Sl Tab) 0.4 Mg) 1 tab Q5M PRN SL CHEST PAIN; Start 04/20/17 at 11:30 Acetaminophen (Tylenol Tab) 650 mg Q6H PRN PO PAIN LEVEL 1-3 OR FEVER; Start at 11:30 Morphine Sulfate (morphine) 2 mg Q4H PRN IV PAIN LEVEL 7-10; Start 04/20/17 at 11:30 Pantoprazole (Protonix Tab) 40 mg DAILY@06 PO Last administered on 04/21/17 05 :43; Admin Dose 40 MG; Start 04/21/17 at 06:00 Enoxaparin Sodium (Lovenox) 30 mg DAILY SC Last administered on 04/21/17 11:54 ; Admin Dose 30 MG; Start 04/21/17 at 09:00 Amlodipine Besylate (Norvasc) 5 mg DAILY PO Last administered on 04/21/17 11: 55; Admin Dose 5 MG; Start 04/21/17 at 09:00 Aspirin (Halfprin) 81 mg DAILY PO Last administered on 04/21/17 08:38; Admin Dose 81 MG; Start 04/21/17 at 09:00 Valsartan (Diovan) 160 mg BID PO Last administered on 04/21/17 08:38; Admin Dose 160 MG; Start 04/21/17 at 09:00 Carvedilol (Coreg) 6.25 mg BID PO Last administered on 04/21/17 08:39; Admin Dose 6.25 MG; Start 04/20/17 at 20:00 Hydralazine HCl (Apresoline) 10 mg Q4H PRN IV sbp <180; Start 04/20/17 at 19:30 Miscellaneous Information 1 ea NOTE XX ; Start 04/21/17 at 10:00 Glucose (Glutose) 15 gm Q15M PRN PO DECREASED GLUCOSE; Start 04/21/17 at 10:00 Glucose (Glutose) 22.5 gm Q15M PRN PO DECREASED GLUCOSE; Start 04/21/17 at 10: 00 Dextrose (D50w Syringe) 25 ml Q15M PRN IV DECREASED GLUCOSE; Start 04/21/17 at 10:00 Dextrose (D50w Syringe) 50 ml Q15M PRN IV DECREASED GLUCOSE; Start 04/21/17 at 10:00 Glucagon (Glucagen) 1 mg Q15M PRN IM DECREASED GLUCOSE; Start 04/21/17 at 10:00 Glucose (Glutose) 15 gm Q15M PRN BUCCAL DECREASED GLUCOSE; Start 04/21/17 at 10 :00 RHYS KOLB Apr 21, 2017 12:11
--- NOTE | 2017-04-21 16:02 | CONS ---
Date/Time of Note Date/Time of Note DATE: 04/21/17 TIME: 16:00 Assessment/Plan Assessment/Plan Additional Assessment/Plan Hypertension urgency Chest pain and shortness of breath, resolved Coronary artery disease with history of CABG Dyslipidemia Aortic root aneurysm -Blood pressure trend improving but still elevated. Given evidence of ascending aortic aneurysm of 5.4 cm, important to be aggressive with blood pressure control with goal of less than 140. Would increase dose of Coreg. If still not well controlled, would consider increasing Norvasc. Extensive discussion had with patient and family at bedside regarding aneurysm and the need for surgery in the near future. Consultation Date/Type/Reason Admit Date/Time Apr 20, 2017 at 02:56 Initial Consult Date 04/21/17 Type of Consultation: cv Referring Provider: Jhonatan León DO 24 HR Interval Summary Free Text/Dictation Denies shortness of breath, chest pain or palpitations. Feeling well. Was seen by CT surgery today. Exam/Review of Systems Vital Signs Vitals Vital Signs Date Time Temp Pulse Resp B/P Pulse Ox O2 Delivery O2 Flow Rate FiO2 04/21/17 15:38 98.3 77 16 158/91 95 04/20/17 11:32 Room Air 04/20/17 09:48 3.0 Intake and Output 04/20/17 04/20/17 04/21/17 15:00 23:00 07:00 Intake Total 400 ml 200 ml Balance 400 ml 200 ml Exam No apparent distress Constitutional: alert, oriented Head: normocephalic Neck: supple Respiratory: clear to auscultation, normal air movement Cardiovascular: other (S1-S2 heard), regular rate and rhythm Gastrointestinal: bowel sounds, non-tender, other (No guarding), soft Extremities: other (No edema or cyanosis) Results Result Diagram: 04/21/17 0654 04/21/17 0654 Results 24 hrs Laboratory Tests Test 04/21/17 06:54 White Blood Count 6.5 Red Blood Count 4.37 L Hemoglobin 13.2 L Hematocrit 38.5 L Mean Corpuscular Volume 88.1 Mean Corpuscular Hemoglobin 30.2 Mean Corpuscular Hemoglobin Concent 34.3 Red Cell Distribution Width 13.0 Platelet Count 140 Mean Platelet Volume 12.3 H Neutrophils % 46.9 Lymphocytes % 40.3 Monocytes % 8.2 Eosinophils % 3.4 Basophils % 0.9 Nucleated Red Blood Cells % 0.0 Neutrophils # 3.1 Lymphocytes # 2.6 Monocytes # 0.5 Eosinophils # 0.2 Basophils # 0.1 Nucleated Red Blood Cells # 0.0 Sodium Level 146 H Potassium Level 3.7 Chloride Level 102 Carbon Dioxide Level 30 Anion Gap 18 H Blood Urea Nitrogen 12 Creatinine 0.93 Glucose Level 117 Hemoglobin A1c 5.9 Calcium Level 9.0 Magnesium Level 2.0 Total Bilirubin 1.7 H Direct Bilirubin 0.00 Indirect Bilirubin 1.7 H Aspartate Amino Transf (AST/SGOT) 28 Alanine Aminotransferase (ALT/SGPT) 41 Alkaline Phosphatase 95 Total Protein 7.5 Albumin 4.2 Globulin 3.30 H Albumin/Globulin Ratio 1.27 Triglycerides Level 380 H Cholesterol Level 153 LDL Cholesterol, Calculated 50 HDL Cholesterol 27 L Cholesterol/HDL Ratio 5.6 Thyroid Stimulating Hormone (TSH) 0.556 Medications Medications Current Medications Allopurinol (Zyloprim) 100 mg DAILY PO Last administered on 04/21/17 08:37; Admin Dose 100 MG; Start 04/21/17 at 09:00 Atorvastatin Calcium (Lipitor) 20 mg HS PO Last administered on 04/20/17 20:20 ; Admin Dose 20 MG; Start 04/20/17 at 21:00 Lansoprazole (Prevacid) 30 mg DAILY PO ; Start 04/20/17 at 11:30; Status Future Hold Ondansetron HCl (Zofran Inj) 4 mg Q6H PRN IV NAUSEA AND/OR VOMITING; Start at 11:30 Nitroglycerin (Nitroglycerin (Sl Tab) 0.4 Mg) 1 tab Q5M PRN SL CHEST PAIN; Start 04/20/17 at 11:30 Acetaminophen (Tylenol Tab) 650 mg Q6H PRN PO PAIN LEVEL 1-3 OR FEVER; Start at 11:30 Morphine Sulfate (morphine) 2 mg Q4H PRN IV PAIN LEVEL 7-10; Start 04/20/17 at 11:30 Pantoprazole (Protonix Tab) 40 mg DAILY@06 PO Last administered on 04/21/17 05 :43; Admin Dose 40 MG; Start 04/21/17 at 06:00 Enoxaparin Sodium (Lovenox) 30 mg DAILY SC Last administered on 04/21/17 11:54 ; Admin Dose 30 MG; Start 04/21/17 at 09:00 Amlodipine Besylate (Norvasc) 5 mg DAILY PO Last administered on 04/21/17 11: 55; Admin Dose 5 MG; Start 04/21/17 at 09:00 Aspirin (Halfprin) 81 mg DAILY PO Last administered on 04/21/17 08:38; Admin Dose 81 MG; Start 04/21/17 at 09:00 Valsartan (Diovan) 160 mg BID PO Last administered on 04/21/17 08:38; Admin Dose 160 MG; Start 04/21/17 at 09:00 Carvedilol (Coreg) 6.25 mg BID PO Last administered on 04/21/17 08:39; Admin Dose 6.25 MG; Start 04/20/17 at 20:00 Hydralazine HCl (Apresoline) 10 mg Q4H PRN IV sbp <180; Start 04/20/17 at 19:30 Miscellaneous Information 1 ea NOTE XX ; Start 04/21/17 at 10:00 Glucose (Glutose) 15 gm Q15M PRN PO DECREASED GLUCOSE; Start 04/21/17 at 10:00 Glucose (Glutose) 22.5 gm Q15M PRN PO DECREASED GLUCOSE; Start 04/21/17 at 10: 00 Dextrose (D50w Syringe) 25 ml Q15M PRN IV DECREASED GLUCOSE; Start 04/21/17 at 10:00 Dextrose (D50w Syringe) 50 ml Q15M PRN IV DECREASED GLUCOSE; Start 04/21/17 at 10:00 Glucagon (Glucagen) 1 mg Q15M PRN IM DECREASED GLUCOSE; Start 04/21/17 at 10:00 Glucose (Glutose) 15 gm Q15M PRN BUCCAL DECREASED GLUCOSE; Start 04/21/17 at 10 :00 Jhonatan León DO Apr 21, 2017 16:02
[2017-04-21] MEDS: hydrALAzine 20 MG INJ IV PRN (18:35)
[2017-04-21] MEDS: ATORVASTATIN 20 MG TAB PO SCH (20:22)
[2017-04-22] VITALS (16 sets, daily range): BP systolic 128–185; BP diastolic 75–105; PULSE 67–82; RESP 16–21
[2017-04-22] MEDS: PANTOPRAZOLE (EC) 40 MG TAB PO SCH (05:48)
--- NOTE | 2017-04-22 07:27 | PN ---
Date/Time of Note Date/Time of Note DATE: 04/22/17 TIME: 07:26 Assessment/Plan VTE Prophylaxis VTE Prophylaxis Intervention: other Lines/Catheters [facility] Urinary Cath still in place: No Assessment/Plan Chief Complaint/Hosp Course - Chest pain in patient with history of coronary artery disease, status post CABG 11 years ago. Will obtain cardiac enzymes 3 every 8 hours, twelve-lead EKG and 2D echo. Continue aspirin and nitroglycerin. Dr. León is asked to see patient in cardiology consultation. - Hypertension, continue metoprolol Diovan, quinapril and Norvasc. - Diabetes mellitus type 2 patient stated his last hemoglobin A1c was 6 , continue metformin. Will check hemoglobin A 1C. NovoLog per mild algorithm sliding scale q. before meals and at bedtime. - Hyperlipidemia, continue statin, check lipid panel. - History of prostate cancer, status post surgery. Problems: Subjective 24 Hr Interval Summary Free Text/Dictation Patient denies any chest pain. Workup ongoing Exam/Review of Systems Vital Signs Vitals Vital Signs Date Time Temp Pulse Resp B/P Pulse Ox O2 Delivery O2 Flow Rate FiO2 04/22/17 05:47 79 141/89 04/22/17 04:01 97.7 19 97 04/20/17 11:32 Room Air 04/20/17 09:48 3.0 Intake and Output 04/21/17 04/21/17 04/22/17 15:00 23:00 07:00 Intake Total 1000 ml 120 ml Balance 1000 ml 120 ml Exam Constitutional: well developed Head: atraumatic, normocephalic Neck: supple Respiratory: clear to auscultation Cardiovascular: regular rate and rhythm Gastrointestinal: non-tender, soft Extremities: normal pulses Results Result Diagram: 04/21/17 0654 04/21/17 0654 Medications Medications Current Medications Allopurinol (Zyloprim) 100 mg DAILY PO Last administered on 04/21/17 08:37; Admin Dose 100 MG; Start 04/21/17 at 09:00 Atorvastatin Calcium (Lipitor) 20 mg HS PO Last administered on 04/21/17 20:22 ; Admin Dose 20 MG; Start 04/20/17 at 21:00 Lansoprazole (Prevacid) 30 mg DAILY PO ; Start 04/20/17 at 11:30; Status Future Hold Ondansetron HCl (Zofran Inj) 4 mg Q6H PRN IV NAUSEA AND/OR VOMITING; Start at 11:30 Nitroglycerin (Nitroglycerin (Sl Tab) 0.4 Mg) 1 tab Q5M PRN SL CHEST PAIN; Start 04/20/17 at 11:30 Acetaminophen (Tylenol Tab) 650 mg Q6H PRN PO PAIN LEVEL 1-3 OR FEVER; Start at 11:30 Morphine Sulfate (morphine) 2 mg Q4H PRN IV PAIN LEVEL 7-10; Start 04/20/17 at 11:30 Pantoprazole (Protonix Tab) 40 mg DAILY@06 PO Last administered on 04/22/17 05 :48; Admin Dose 40 MG; Start 04/21/17 at 06:00 Enoxaparin Sodium (Lovenox) 30 mg DAILY SC Last administered on 04/21/17 11:54 ; Admin Dose 30 MG; Start 04/21/17 at 09:00 Amlodipine Besylate (Norvasc) 5 mg DAILY PO Last administered on 04/21/17 11: 55; Admin Dose 5 MG; Start 04/21/17 at 09:00 Aspirin (Halfprin) 81 mg DAILY PO Last administered on 04/21/17 08:38; Admin Dose 81 MG; Start 04/21/17 at 09:00 Valsartan (Diovan) 160 mg BID PO Last administered on 04/21/17 20:22; Admin Dose 160 MG; Start 04/21/17 at 09:00 Hydralazine HCl (Apresoline) 10 mg Q4H PRN IV sbp >160 Last administered on 18:35; Admin Dose 10 MG; Start 04/20/17 at 19:30 Miscellaneous Information 1 ea NOTE XX ; Start 04/21/17 at 10:00 Glucose (Glutose) 15 gm Q15M PRN PO DECREASED GLUCOSE; Start 04/21/17 at 10:00 Glucose (Glutose) 22.5 gm Q15M PRN PO DECREASED GLUCOSE; Start 04/21/17 at 10: 00 Dextrose (D50w Syringe) 25 ml Q15M PRN IV DECREASED GLUCOSE; Start 04/21/17 at 10:00 Dextrose (D50w Syringe) 50 ml Q15M PRN IV DECREASED GLUCOSE; Start 04/21/17 at 10:00 Glucagon (Glucagen) 1 mg Q15M PRN IM DECREASED GLUCOSE; Start 04/21/17 at 10:00 Glucose (Glutose) 15 gm Q15M PRN BUCCAL DECREASED GLUCOSE; Start 04/21/17 at 10 :00 Carvedilol (Coreg) 12.5 mg BID PO Last administered on 04/21/17t 20:22; Admin Dose 12.5 MG; Start 04/21/17 at 21:00 RHYS KOLB Apr 22, 2017 07:27
[2017-04-22] MEDS: ASPIRIN (EC) 81 MG TAB PO SCH (08:31)
[2017-04-22] MEDS: ALLOPURINOL 100 MG TAB PO SCH (08:32)
[2017-04-22] MEDS: VALSARTAN 160 MG TAB PO SCH ×2 (08:32→19:41)
[2017-04-22] MEDS: metFORMIN 500 MG TAB PO SCH (08:32)
[2017-04-22] MEDS: ENOXAPARIN 30 MG/0.3 ML SYG SC SCH (08:46)
[2017-04-22] MEDS ORDERED: AMLODIPINE 5 MG TAB PO SCH (09:00)
[2017-04-22] MEDS: CHLORTHALIDONE 25 MG TAB PO SCH (10:10)
--- NOTE | 2017-04-22 13:52 | CONS ---
Date/Time of Note Date/Time of Note DATE: 04/22/17 TIME: 13:49 Assessment/Plan Assessment/Plan Additional Assessment/Plan Hypertension urgency Chest pain and shortness of breath, resolved Coronary artery disease with history of CABG Dyslipidemia Aortic root aneurysm -Blood pressure trend improving but still elevated. Given evidence of ascending aortic aneurysm of 5.4 cm, important to be aggressive with blood pressure control. Given elevated diastolic numbers as well, with start low- dose diuretic. Increased Norvasc. Extensive discussion had with patient and family at bedside regarding discharge. Blood pressure still not optimal, if remains less than the 150 consistently through the afternoon, would consider discharge later this evening. Patient for outpatient follow-up for CT surgery for aneurysm and will require outpatient cardiac catheterization. Consultation Date/Type/Reason Admit Date/Time Apr 20, 2017 at 02:56 Initial Consult Date 04/21/17 Type of Consultation: cv Referring Provider: Jhonatan León DO 24 HR Interval Summary Free Text/Dictation Denies chest pain, shortness of breath or dizziness Exam/Review of Systems Vital Signs Vitals Vital Signs Date Time Temp Pulse Resp B/P Pulse Ox O2 Delivery O2 Flow Rate FiO2 04/22/17 12:15 69 04/22/17 11:06 98.2 16 157/89 95 04/20/17 11:32 Room Air 04/20/17 09:48 3.0 Intake and Output 04/21/17 04/21/17 04/22/17 15:00 23:00 07:00 Intake Total 1000 ml 120 ml Balance 1000 ml 120 ml Exam No apparent distress, family at bedside Constitutional: alert, oriented, well developed Head: normocephalic Respiratory: other (Coarse breath sounds bilaterally, no wheezing) Cardiovascular: other (S1-S2 heard), regular rate and rhythm Gastrointestinal: bowel sounds, non-tender, soft Extremities: edema (Trace) Results Result Diagram: 04/21/1754 04/21/17653 Medications Medications Current Medications Allopurinol (Zyloprim) 100 mg DAILY PO Last administered on 04/22/17 08:32; Admin Dose 100 MG; Start 04/21/17 at 09:00 Atorvastatin Calcium (Lipitor) 20 mg HS PO Last administered on 04/21/17 20:22 ; Admin Dose 20 MG; Start 04/20/17 at 21:00 Lansoprazole (Prevacid) 30 mg DAILY PO ; Start 04/20/17 at 11:30; Status Future Hold Ondansetron HCl (Zofran Inj) 4 mg Q6H PRN IV NAUSEA AND/OR VOMITING; Start at 11:30 Nitroglycerin (Nitroglycerin (Sl Tab) 0.4 Mg) 1 tab Q5M PRN SL CHEST PAIN; Start 04/20/17 at 11:30 Acetaminophen (Tylenol Tab) 650 mg Q6H PRN PO PAIN LEVEL 1-3 OR FEVER; Start at 11:30 Morphine Sulfate (morphine) 2 mg Q4H PRN IV PAIN LEVEL 7-10; Start 04/20/17 at 11:30 Pantoprazole (Protonix Tab) 40 mg DAILY@06 PO Last administered on 04/22/17 05 :48; Admin Dose 40 MG; Start 04/21/17 at 06:00 Enoxaparin Sodium (Lovenox) 30 mg DAILY SC Last administered on 04/22/17 08:46 ; Admin Dose 30 MG; Start 04/21/17 at 09:00 Aspirin (Halfprin) 81 mg DAILY PO Last administered on 04/22/17 08:31; Admin Dose 81 MG; Start 04/21/17 at 09:00 Valsartan (Diovan) 160 mg BID PO Last administered on 04/22/17 08:32; Admin Dose 160 MG; Start 04/21/17 at 09:00 Hydralazine HCl (Apresoline) 10 mg Q4H PRN IV sbp >160 Last administered on 18:35; Admin Dose 10 MG; Start 04/20/17 at 19:30 Miscellaneous Information 1 ea NOTE XX ; Start 04/21/17 at 10:00 Glucose (Glutose) 15 gm Q15M PRN PO DECREASED GLUCOSE; Start 04/21/17 at 10:00 Glucose (Glutose) 22.5 gm Q15M PRN PO DECREASED GLUCOSE; Start 04/21/17 at 10: 00 Dextrose (D50w Syringe) 25 ml Q15M PRN IV DECREASED GLUCOSE; Start 04/21/17 at 10:00 Dextrose (D50w Syringe) 50 ml Q15M PRN IV DECREASED GLUCOSE; Start 04/21/17 at 10:00 Glucagon (Glucagen) 1 mg Q15M PRN IM DECREASED GLUCOSE; Start 04/21/17 at 10:00 Glucose (Glutose) 15 gm Q15M PRN BUCCAL DECREASED GLUCOSE; Start 04/21/17 at 10 :00 Carvedilol (Coreg) 12.5 mg BID PO Last administered on 04/22/17 08:32; Admin Dose 12.5 MG; Start 04/21/17 at 21:00 Amlodipine Besylate (Norvasc) 5 mg BID PO Last administered on 04/22/17 08:32 ; Admin Dose 5 MG; Start 04/22/17 at 09:00 Chlorthalidone (Hygroton) 25 mg DAILY@06 PO Last administered on 04/22/17 10: 10; Admin Dose 25 MG; Start 04/22/17 at 09:00 Jhonatan León DO Apr 22, 2017 13:52
--- NOTE | 2017-04-22 18:58 | RADRPT ---
Vent Rate: 65 bpm RR Interval: 0 msec CO Interval: 170 msec QRS Duration: 92 msec QT Interval: 414 msec QTC Interval: 430 msec P-R-T [place]: 61 - 63 - 64 degrees Normal sinus rhythm Possible Left atrial enlargement Left ventricular hypertrophy Abnormal ECG Electronically Signed By: Gonzalez Love [id number]
[2017-04-22] MEDS: ATORVASTATIN 20 MG TAB PO SCH (23:52)
[2017-04-23] VITALS (12 sets, daily range): BP systolic 131–156; BP diastolic 73–95; PULSE 67–86; RESP 16–20
[2017-04-23] MEDS: hydrALAzine 20 MG INJ IV PRN (00:39)
[2017-04-23] MEDS: PANTOPRAZOLE (EC) 40 MG TAB PO SCH (06:55)
[2017-04-23] MEDS: CHLORTHALIDONE 25 MG TAB PO SCH (06:58)
[2017-04-23] MEDS ORDERED: AMLODIPINE 5 MG TAB PO SCH (09:00)
[2017-04-23] MEDS: VALSARTAN 160 MG TAB PO SCH ×2 (09:03→20:13)
[2017-04-23] MEDS: ASPIRIN (EC) 81 MG TAB PO SCH (09:03)
[2017-04-23] MEDS: metFORMIN 500 MG TAB PO SCH (09:03)
[2017-04-23] MEDS: ALLOPURINOL 100 MG TAB PO SCH (09:03)
[2017-04-23] MEDS: ACETAMINOPHEN 325 MG TAB PO PRN ×2 (09:04→18:14)
[2017-04-23] MEDS: ENOXAPARIN 30 MG/0.3 ML SYG SC SCH (09:09)
--- NOTE | 2017-04-23 09:47 | PN ---
Date/Time of Note Date/Time of Note DATE: 04/23/17 TIME: 09:45 Assessment/Plan VTE Prophylaxis VTE Prophylaxis Intervention: SCD's Lines/Catheters IV Catheter Type (from Nrsg): Saline Lock Urinary Cath still in place: No Assessment/Plan Assessment/Plan Hypertension urgency Chest pain and shortness of breath, resolved Coronary artery disease with history of CABG Dyslipidemia Aortic root aneurysm -Blood pressure trend improving but still elevated. Given evidence of ascending aortic aneurysm of 5.4 cm, important to be aggressive with blood pressure control. -Extensive discussion had with patient and daughter -Blood pressure still not optimal, if remains less than the 150 consistently through the afternoon, would consider discharge later this evening. Patient for outpatient follow-up for CT surgery for aneurysm and will require outpatient cardiac catheterization. -will increase meds d/c planning ok Subjective 24 Hr Interval Summary Free Text/Dictation The patient with HTN ooc but better this am Exam/Review of Systems Vital Signs Vitals Vital Signs Date Time Temp Pulse Resp B/P Pulse Ox O2 Delivery O2 Flow Rate FiO2 04/23/17 09:09 83 155/95 04/23/17 07:49 98.1 19 96 04/22/17 16:08 Room Air 04/20/17 09:48 3.0 Intake and Output 04/22/17 04/22/17 04/23/17 15:00 23:00 07:00 Intake Total 720 ml 500 ml Balance 720 ml 500 ml Results Result Diagram: 04/21/17 0654 04/21/17 0654 Medications Medications Current Medications Allopurinol (Zyloprim) 100 mg DAILY PO Last administered on 04/23/17 09:03; Admin Dose 100 MG; Start 04/21/17 at 09:00 Atorvastatin Calcium (Lipitor) 20 mg HS PO Last administered on 04/22/17 23:52 ; Admin Dose 20 MG; Start 04/20/17 at 21:00 Lansoprazole (Prevacid) 30 mg DAILY PO ; Start 04/20/17 at 11:30; Status Future Hold Ondansetron HCl (Zofran Inj) 4 mg Q6H PRN IV NAUSEA AND/OR VOMITING; Start at 11:30 Nitroglycerin (Nitroglycerin (Sl Tab) 0.4 Mg) 1 tab Q5M PRN SL CHEST PAIN; Start 04/20/17 at 11:30 Acetaminophen (Tylenol Tab) 650 mg Q6H PRN PO PAIN LEVEL 1-3 OR FEVER Last administered on 04/23/17 09:04; Admin Dose 650 MG; Start 04/20/17 at 11:30 Morphine Sulfate (morphine) 2 mg Q4H PRN IV PAIN LEVEL 7-10; Start 04/20/17 at 11:30 Pantoprazole (Protonix Tab) 40 mg DAILY@06 PO Last administered on 04/23/17 06 :55; Admin Dose 40 MG; Start 04/21/17 at 06:00 Enoxaparin Sodium (Lovenox) 30 mg DAILY SC Last administered on 04/23/17 09:09 ; Admin Dose 30 MG; Start 04/21/17 at 09:00 Aspirin (Halfprin) 81 mg DAILY PO Last administered on 04/23/17 09:03; Admin Dose 81 MG; Start 04/21/17 at 09:00 Valsartan (Diovan) 160 mg BID PO Last administered on 04/23/17 09:03; Admin Dose 160 MG; Start 04/21/17 at 09:00 Hydralazine HCl (Apresoline) 10 mg Q4H PRN IV sbp >160 Last administered on 00:39; Admin Dose 10 MG; Start 04/20/17 at 19:30 Miscellaneous Information 1 ea NOTE XX ; Start 04/21/17 at 10:00 Glucose (Glutose) 15 gm Q15M PRN PO DECREASED GLUCOSE; Start 04/21/17 at 10:00 Glucose (Glutose) 22.5 gm Q15M PRN PO DECREASED GLUCOSE; Start 04/21/17 at 10: 00 Dextrose (D50w Syringe) 25 ml Q15M PRN IV DECREASED GLUCOSE; Start 04/21/17 at 10:00 Dextrose (D50w Syringe) 50 ml Q15M PRN IV DECREASED GLUCOSE; Start 04/21/17 at 10:00 Glucagon (Glucagen) 1 mg Q15M PRN IM DECREASED GLUCOSE; Start 04/21/17 at 10:00 Glucose (Glutose) 15 gm Q15M PRN BUCCAL DECREASED GLUCOSE; Start 04/21/17 at 10 :00 Carvedilol (Coreg) 12.5 mg BID PO Last administered on 04/23/17 09:04; Admin Dose 12.5 MG; Start 04/21/17 at 21:00 Chlorthalidone (Hygroton) 25 mg DAILY@06 PO Last administered on 04/23/17 06: 58; Admin Dose 25 MG; Start 04/22/17 at 09:00 Amlodipine Besylate (Norvasc) 5 mg DAILY PO Last administered on 04/23/17 09: 04; Admin Dose 5 MG; Start 04/23/17 at 09:00 ELIZ SAMAYOA MD Apr 23, 2017 09:47
--- NOTE | 2017-04-23 10:19 | PN ---
Date/Time of Note Date/Time of Note DATE: 04/23/17 TIME: 10:18 Assessment/Plan VTE Prophylaxis VTE Prophylaxis Intervention: other Lines/Catheters IV Catheter Type (from [facility]): [facility] Urinary Cath still in place: No Assessment/Plan Chief Complaint/Hosp Course - Chest pain in patient with history of coronary artery disease, status post CABG 11 years ago. Will obtain cardiac enzymes 3 every 8 hours, twelve-lead EKG and 2D echo. Continue aspirin and nitroglycerin. Dr. León is asked to see patient in cardiology consultation. - Hypertension, continue metoprolol Diovan, quinapril and Norvasc. - Diabetes mellitus type 2 patient stated his last hemoglobin A1c was 6 , continue metformin. Will check hemoglobin A 1C. NovoLog per mild algorithm sliding scale q. before meals and at bedtime. - Hyperlipidemia, continue statin, check lipid panel. - History of prostate cancer, status post surgery. Problems: Subjective 24 Hr Interval Summary Free Text/Dictation Patient was to go home yesterday but discharge held because of elevated blood pressure Exam/Review of Systems Vital Signs Vitals Vital Signs Date Time Temp Pulse Resp B/P Pulse Ox O2 Delivery O2 Flow Rate FiO2 04/23/17 09:09 83 155/95 04/23/17 07:49 98.1 19 96 04/22/17 16:08 Room Air 04/20/17 09:48 3.0 Intake and Output 04/22/17 04/22/17 04/23/17 15:00 23:00 07:00 Intake Total 720 ml 500 ml Balance 720 ml 500 ml Exam Constitutional: well developed Head: atraumatic, normocephalic Neck: supple Respiratory: clear to auscultation Cardiovascular: regular rate and rhythm Gastrointestinal: non-tender, soft Extremities: normal pulses Results Result Diagram: 04/21/17 0654 04/21/17 0654 Medications Medications Current Medications Allopurinol (Zyloprim) 100 mg DAILY PO Last administered on 04/23/17 09:03; Admin Dose 100 MG; Start 04/21/17 at 09:00 Atorvastatin Calcium (Lipitor) 20 mg HS PO Last administered on 04/22/17 23:52 ; Admin Dose 20 MG; Start 04/20/17 at 21:00 Lansoprazole (Prevacid) 30 mg DAILY PO ; Start 04/20/17 at 11:30; Status Future Hold Ondansetron HCl (Zofran Inj) 4 mg Q6H PRN IV NAUSEA AND/OR VOMITING; Start at 11:30 Nitroglycerin (Nitroglycerin (Sl Tab) 0.4 Mg) 1 tab Q5M PRN SL CHEST PAIN; Start 04/20/17 at 11:30 Acetaminophen (Tylenol Tab) 650 mg Q6H PRN PO PAIN LEVEL 1-3 OR FEVER Last administered on 04/23/17 09:04; Admin Dose 650 MG; Start 04/20/17 at 11:30 Morphine Sulfate (morphine) 2 mg Q4H PRN IV PAIN LEVEL 7-10; Start 04/20/17 at 11:30 Pantoprazole (Protonix Tab) 40 mg DAILY@06 PO Last administered on 04/23/17 06 :55; Admin Dose 40 MG; Start 04/21/17 at 06:00 Enoxaparin Sodium (Lovenox) 30 mg DAILY SC Last administered on 04/23/17 09:09 ; Admin Dose 30 MG; Start 04/21/17 at 09:00 Aspirin (Halfprin) 81 mg DAILY PO Last administered on 04/23/17 09:03; Admin Dose 81 MG; Start 04/21/17 at 09:00 Valsartan (Diovan) 160 mg BID PO Last administered on 04/23/17 09:03; Admin Dose 160 MG; Start 04/21/17 at 09:00 Hydralazine HCl (Apresoline) 10 mg Q4H PRN IV sbp >160 Last administered on 00:39; Admin Dose 10 MG; Start 04/20/17 at 19:30 Miscellaneous Information 1 ea NOTE XX ; Start 04/21/17 at 10:00 Glucose (Glutose) 15 gm Q15M PRN PO DECREASED GLUCOSE; Start 04/21/17 at 10:00 Glucose (Glutose) 22.5 gm Q15M PRN PO DECREASED GLUCOSE; Start 04/21/17 at 10: 00 Dextrose (D50w Syringe) 25 ml Q15M PRN IV DECREASED GLUCOSE; Start 04/21/17 at 10:00 Dextrose (D50w Syringe) 50 ml Q15M PRN IV DECREASED GLUCOSE; Start 04/21/17 at 10:00 Glucagon (Glucagen) 1 mg Q15M PRN IM DECREASED GLUCOSE; Start 04/21/17 at 10:00 Glucose (Glutose) 15 gm Q15M PRN BUCCAL DECREASED GLUCOSE; Start 04/21/17 at 10 :00 Chlorthalidone (Hygroton) 25 mg DAILY@06 PO Last administered on 04/23/17t 06: 58; Admin Dose 25 MG; Start 04/22/17 at 09:00 Amlodipine Besylate (Norvasc) 10 mg DAILY PO ; Start 04/24/17 at 09:00 Carvedilol (Coreg) 25 mg BID PO ; Start 04/23/17 at 21:00 RHYS KOLB Apr 23, 2017 10:19
[2017-04-23] MEDS ORDERED: CARV25TA79 PO ×2 (17:14→17:15)
[2017-04-23] MEDS: ATORVASTATIN 20 MG TAB PO SCH (20:13)
[2017-04-24] MEDS ORDERED: AMLODIPINE 10 MG TAB PO SCH (09:00)
== END 2017-04-23 20:35 | disposition home or self-care (01) | DRG 305 ==
LOC: E/R 00:14 → TEL 02:56
PROVIDERS: ADMIT Internal Medicine; ATTEND Internal Medicine
DX: I16.0 Hypertensive urgency (principal); I71.2 Thoracic aortic aneurysm, without rupture; E78.5 Hyperlipidemia, unspecified; E11.9 Type 2 diabetes mellitus without complications; I71.9 Aortic aneurysm of unspecified site, without rupture; I25.10 Atherosclerotic heart disease of native coronary artery without angina pectoris; Z95.1 Presence of aortocoronary bypass graft; Z85.46 Personal history of malignant neoplasm of prostate
CPT/HCPCS: 36415; 70450; 71010; 71250; 80048; 80053; 80061; 83036; 83735; 84443; 84484; 85025; 85610; 85730; 93005; 93306; J0360; J1650; J7040

== ENCOUNTER 2017-05-26 06:07 | Day surgery (SDC) | payer OTHER ==
[~2017-05-26] VITALS: Ht 162.6 cm; Wt 68.0 kg
[2017-05-26] VITALS (18 sets, daily range): BP systolic 110–128; BP diastolic 60–80; PULSE 68–77; RESP 14–21; Ht 162.6 cm; Wt 68.0 kg
[~2017-05-26 06:07] MED LIST changes: -AMOX1TAB10 PO; -METO-407 PO; +VALS320T11 PO
[2017-05-26 06:51] LABS: BASOPHIL # 0.1 10^3/ul (0.0-0.1); EOSINOPHILS # 0.1 10^3/ul (0.0-0.5); EOSINOPHILS % 2.4 % (0.0-7.0); HEMATOCRIT 38.4 % (42.0-52.0); HEMOGLOBIN 13.8 g/dl (14.0-18.0); LYMPHOCYTES % 33.8 % (15.0-51.0); MEAN CORPUSCULAR HEMOGLOBIN 30.7 pg (29.0-33.0); MEAN CORPUSCULAR HGB CONC 35.9 g/dl (32.0-37.0); MEAN CORPUSCULAR VOLUME 85.3 fl (82.0-101.0); MONOCYTE # 0.6 10^3/ul (0.3-0.9); MONOCYTES % 9.6 % (0.0-11.0); PLATELET COUNT 145 10^3/UL (140-415); RED CELL DISTRIBUTION WIDTH 12.3 % (11.5-14.5); WHITE BLOOD COUNT 5.8 10^3/ul (4.8-10.8)
[2017-05-26] MEDS ORDERED: MIDAZOLAM 1 MG/ML 2 ML INJ ONE (06:51)
[2017-05-26] MEDS ORDERED: HEPARIN 1000 UNITS/ML 10 ML INJ ONE ×2 (06:51→08:47)
[2017-05-26] MEDS ORDERED: FENTAnyl 50 MCG/ML VIAL ONE ×2 (06:51→08:47)
[2017-05-26] MEDS ORDERED: LIDOCAINE 1% (MDV) 20 ML INJ ONE ×2 (06:51→08:47)
[2017-05-26] MEDS ORDERED: IODIXANOL LOCM 100 ML BTL ONE ×2 (06:51→08:47)
[2017-05-26] MEDS ORDERED: VERAPAMIL 5 MG INJ ONE (06:51)
[2017-05-26] MEDS ORDERED: NITROGLYCERIN (IC) 100 MCG/ML INJ ONE (06:52)
[2017-05-26] MEDS ORDERED: ASPI-664 PO (07:07)
[2017-05-26] MEDS ORDERED: CARV12.598 PO (07:07)
[2017-05-26] MEDS ORDERED: CHLO25TA13 PO (07:07)
[2017-05-26 07:08] LABS: INR 0.91; PARTIAL THROMBOPLASTIN TIME 33.3 Sec (25.0-35.0); PROTIME 12.3 Sec (12.2-14.2)
[2017-05-26 07:11] LABS: CALCIUM 9.6 mg/dl (8.4-10.2); CREATININE 0.88 mg/dl (0.61-1.24); POTASSIUM 3.5 mmol/L (3.5-5.1)
[2017-05-26] MEDS ORDERED: SOD CHLORIDE 0.9% 1,000 ML IV SCH (10:17)
[2017-05-26] MEDS ORDERED: ONDANSETRON 4 MG INJ IV PRN (10:30)
[2017-05-26] MEDS ORDERED: AL HYDROX/MG HYDROX/SIMETH 30 ML CUP PO PRN (10:30)
[2017-05-26] MEDS ORDERED: ACETAMINOPHEN 325 MG TAB PO PRN (10:30)
--- NOTE | 2017-05-26 10:31 | OPR ---
Date/Time of Note Date/Time of Note DATE: 05/26/17 TIME: 10:19 Operative Report Procedure Date: May 26, 2017 Preoperative Diagnosis Ascending aortic aneurysm Coronary artery disease with history of CABG Postoperative Diagnosis Ascending aortic aneurysm Coronary artery disease with history of CABG Operation Performed Left heart catheterization Right and left coronary angiogram and bypass graft Interpretation and supervision of right left coronary angiogram and bypass grafts Left ventricular pressure measurements Ascending aortogram Conscious sedation Left radial artery approach Surgeon: Jhonatan León DO Anesthesia Type: other (Conscious sedation) Estimated Blood Loss: minimal Specimen: none Complications: no Pt Condition Post Procedure: stable Disposition: PACU Indications Coronary angiogram needed prior to open heart surgery for repair of ascending aortic aneurysm Operative\Procedure Findings Hemodynamics LV pressure 118/-21 with EDP of 3 Aortic pressure 116/62 Coronary anatomy/aortogram Left main is a large caliber vessel with distal 10% stenosis LAD is a large caliber vessel with a mid 90% diffuse area of stenosis were multiple small diagonals come off. The mid to distal vessel is seen via the CARBONE injection with 10% diffuse disease Circumflex is a medium to large caliber vessel with proximal 20-30% stenosis. AV groove circumflex with mid 20% stenosis. RCA is a medium caliber vessel with a proximal to mid 100% stenosis with right to right collaterals via marginals. The distal RCA is seen via either a collateral from the LAD or a jump graft from the CARBONE with 90% stenosis at the bifurcation of the PDA and PLB CARBONE to LAD is patent with no significant disease. There is a possible jump graft from the CARBONE going to the PDA versus a collateral from the distal LAD going to the PDA which is patent with no significant disease. Ascending aortogram performed demonstrated dilation of the ascending aorta and no grafts were seen coming off the ascending aorta. Procedure Description Patient was brought to the [facility] after informed consent. Patient was prepped and draped as per protocol. Left radial access was obtained and a 5/6 [place] sheath was placed in left radial artery. A 5 Lao JR4 catheter was used to engage the CARBONE and angiogram was performed. We next engage the RCA and antrum was performed. We next entered the left ventricle and pressure measurements were obtained as well as pullback. We attempted to reach any possible grafts of the ascending aorta but none were found. We next used a 5 [place] JL 4 catheter and engaged the left main and antrum was performed. We next used a 6 [place] pigtail and did an ascending aortogram which demonstrated dilation of the aortic root with no grafts seen coming off the ascending aorta. Secondary to sub-optimal imaging of the CARBONE, we use an IM catheter to engage the CARBONE and repeat angiogram was performed. All catheters and wires removed. There was no immediate complications. Jhonatan León DO May 26, 2017 10:30
--- NOTE | 2017-05-26 10:38 | PDOCDIS ---
Discharge Instructions CONDITION Patient Condition: Good HOME CARE INSTRUCTIONS: Diet Instructions: Low Fat /Cholesterol ACTIVITY: Activity Restrictions: Slowly Increase Activity Avoid heavy lifting (Not more than 5 pounds with left arm 3 days) Do not Drive (1 day) OTHER ORDERS: Other Orders: Hold metformin until May 29 Jhonatan León DO May 26, 2017 10:38
--- NOTE | 2017-05-26 17:06 | RADRPT ---
Vent Rate: 75 bpm RR Interval: 0 msec [place] Interval: 158 msec QRS Duration: 96 msec QT Interval: 378 msec QTC Interval: 422 msec P-R-T [place]: 51 - 55 - 44 degrees Normal sinus rhythm Minimal voltage criteria for LVH, may be normal variant Nonspecific T wave abnormality Abnormal ECG Electronically Signed By: Jhonatan León [id number]
== END 2017-05-26 15:15 | disposition home or self-care (01) ==
LOC: SDS 06:07
PROVIDERS: ATTEND Internal Medicine Cardiovascular Disease
DX: I25.10 Atherosclerotic heart disease of native coronary artery without angina pectoris (principal); Z95.1 Presence of aortocoronary bypass graft; I10 Essential (primary) hypertension
CPT/HCPCS: 80048; 82962; 85025; 85610; 85730; 93005; 93459; C1769; C1887; J1644; J2250; J3010; Q9967